=== PATIENT | male | born 1980 | race Caucasian/White ===

== ENCOUNTER 2018-05-13 19:53 | Emergency (ER) | payer BC, SELFPAY ==
[2018-05-13 19:57] VITALS: BP 133/95; PULSE 115; RESP 20; TEMP 37.2; O2SAT 93
--- NOTE | 2018-05-13 20:16 | DI.RAD_ITS ---
SYMPTOM/DIAGNOSIS: COUGH, SOB CHEST X-RAY: PA, lateral. No priors. The heart is normal in size. The lungs are clear. The mediastinal structures and pleura appear intact. CONCLUSION: Normal chest.
[2018-05-13] MEDS: methylPREDNISolone SUCC 125 MG VIAL IM (20:20)
[2018-05-13 20:21] VITALS: RESP 4; RESP 7; O2SAT 93
[2018-05-13] MEDS: Albuterol/Ipratropium 3 ML UPD VIAL 9 ML UPD (20:21)
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
[2018-05-13 20:51] VITALS: PULSE 115; RESP 18; O2SAT 95
--- NOTE | 2018-05-13 20:54 | DI.VRAD_ITS ---
EXAM: XR Chest, 2 Views EXAM DATE/TIME: 05/13/2018 8:11 PM CLINICAL HISTORY: 37 years old, male; Signs and symptoms; Cough and shortness of breath; Patient HX: Cough, shortness of breath. TECHNIQUE: XR of the chest, 2 views. COMPARISON: No relevant prior studies available. FINDINGS: The lung philip are clear bilaterally. No focal pulmonary consolidation is present. The cardiac silhouette is within normal limits. The costophrenic angles are sharp. The bony structures appear unremarkable. IMPRESSION: No evidence of acute cardiopulmonary disease. Dictated and Authenticated by: Casey Godinez MD. Ordering:CARMELINA FENG MD
== END 2018-05-13 21:45 | disposition home or self-care (01) ==
PROVIDERS: Emergency Provider Student in an Organized Health Care Education/Training Program; PCP Family Medicine
DX: J45.901 Unspecified asthma with (acute) exacerbation (principal)
CPT/HCPCS: 94640; 96374; 99284; 71046; J2930; J7620